=== PATIENT | female | born 1990 | race African-American/Black ===

== ENCOUNTER 2019-07-14 17:22 | Emergency (ER) | payer MEDICAID, MEDICARE ==
[~2019-07-14] VITALS: Ht 170.2 cm; Wt 65.0 kg
[2019-07-14] MEDS ORDERED: IBUPROFEN 800MG TABLET PO ONE (18:30)
[2019-07-14] MEDS ORDERED: ACETAMINOPHEN 325MG TABLET PO ONE (18:30)
[2019-07-14 19:58] VITALS: BP 119/79
== END 2019-07-14 19:59 | disposition home or self-care (01) ==
LOC: ER 17:22
DX: M25.512 Pain in left shoulder (principal); V49.59XA Passenger injured in collision with other motor vehicles in traffic accident, initial encounter; Y93.89 Activity, other specified; Y92.89 Other specified places as the place of occurrence of the external cause; Y99.8 Other external cause status; Z88.0 Allergy status to penicillin; F41.9 Anxiety disorder, unspecified
CPT/HCPCS: 73030; 73080; 73110; 73120; 73130; 73610; 73630; 99283